=== PATIENT | male | born 1950 | race Caucasian/White ===

== ENCOUNTER 2023-08-28 14:48 | Emergency (ER) | payer MEDICARE, SELFPAY ==
[2023-08-28 14:52] VITALS: BP 150/102
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
[2023-08-28] MEDS: TYLENOL 650 MG PO (15:40)
[2023-08-28] MEDS: ADACEL 0.5 ML IM (15:42)
[2023-08-28 18:37] VITALS: BP 143/76
== END 2023-08-28 18:46 | disposition home or self-care (01) ==
LOC: EMR 14:48
PROVIDERS: EMERGENCY PHYSICIAN Student in an Organized Health Care Education/Training Program; FAMILY PHYSICIAN Family Medicine
DX: S70.01XA Contusion of right hip, initial encounter (principal); S80.11XA Contusion of right lower leg, initial encounter; S81.811A Laceration without foreign body, right lower leg, initial encounter; S51.812A Laceration without foreign body of left forearm, initial encounter; S51.811A Laceration without foreign body of right forearm, initial encounter; S00.83XA Contusion of other part of head, initial encounter; V17.0XXA Pedal cycle driver injured in collision with fixed or stationary object in nontraffic accident, initial encounter; E78.5 Hyperlipidemia, unspecified; E03.9 Hypothyroidism, unspecified; R03.0 Elevated blood-pressure reading, without diagnosis of hypertension; Z23 Encounter for immunization
CPT/HCPCS: 99284; 12032; 90471; 70450; 73502; 90715

== ENCOUNTER → 2024-06-21 13:53 | Outpatient (REF) | payer MEDICARE, SELFPAY | LOC: RAD 13:53 | PROVIDERS: ATTENDING PHYSICIAN Podiatrist Foot Surgery; FAMILY PHYSICIAN Family Medicine | DX: Z01.818 Encounter for other preprocedural examination (principal) | CPT/HCPCS: 70030 ==

== ENCOUNTER → 2024-07-23 13:15 | Outpatient (REF) | payer MEDICARE, SELFPAY | LOC: CLAB 13:15 | PROVIDERS: ATTENDING PHYSICIAN Podiatrist Foot Surgery | DX: R22.42 Localized swelling, mass and lump, left lower limb (principal) | CPT/HCPCS: 88304 ==